=== PATIENT | female | born 1965 | race Two or more races ===

== ENCOUNTER → 2025-01-12 | Outpatient (CLI) | payer BC, SELFPAY ==
--- NOTE | 2025-01-12 12:40 | XR_ITS ---
Examination: Bilateral hands, 6 views. Technique: AP, Oblique, Lateral each hand total 6 views Date and time of exam: January 12, 2025, 1342 hours INDICATIONS: Bilateral hand pain 1 month Findings: Moderate juxta-articular bone demineralization. No fracture or dislocation involving either hand No erosive or other significant arthritic change involving either hand IMPRESSION: No erosive or other significant arthritic change involving either hand
--- NOTE | 2025-01-12 12:40 | XR_ITS ---
EXAMINATION: Bilateral wrist 6 views TECHNIQUE: AP oblique lateral each wrist total 6 views Date and time: January 12, 2025, 1351 hours INDICATIONS: Bilateral wrist pain 1 month. FINDINGS: Mild to moderate osteopenia No fracture or dislocation involving either wrist No erosive or other significant arthritic change involving either wrist IMPRESSION: No erosive or other significant arthritic change involving either wrist
--- NOTE | 2025-01-12 13:00 | XR_ITS ---
Examination: Screening digital mammography, bilateral Computer aided detection 3-D breast Tomosynthesis, bilateral Date and time of exam: January 12, 2025, 1249 hours, compared to mammograms dating to February 11, 2018 Indication: Screening Technique: Nonmagnified MLO, CC views of the breasts to been obtained, reconstructed from 3-D Tomosynthesis images. R2 computer aided detection program utilized for evaluation of suspicious masses and/or abnormal calcifications. 3-D Tomosynthesis images obtained. Findings: Scattered areas of fibroglandular density Stable focal asymmetry outer left breast on the cc view and upper left breast on the MLO view Benign calcifications No interval suspicious masses Impression: BI-RADS category II: Benign Findings. Recommend 1 year follow-up mammogram.
== END | disposition home or self-care (01) ==
LOC: CDIM 12:25
PROVIDERS: PCP Registered Nurse Community Health; Referring Provider Registered Nurse Community Health; Visit Provider Registered Nurse Community Health
DX: Z12.31 Encounter for screening mammogram for malignant neoplasm of breast (principal); R92.323 Mammographic fibroglandular density, bilateral breasts; R92.1 Mammographic calcification found on diagnostic imaging of breast; M79.641 Pain in right hand; M79.643 Pain in unspecified hand; M25.532 Pain in left wrist; M25.531 Pain in right wrist
CPT/HCPCS: 73110; 73130; 77063; 77067